=== PATIENT | female | born 1945 | race Caucasian/White ===

== ENCOUNTER → 2017-01-26 | Outpatient (CLI) | payer MEDICARE, BC ==
--- NOTE | 2017-01-26 11:16 | RAD ---
EXAM: Lumbar spine CT without contrast. HISTORY: Sciatica. TECHNIQUE: Computed tomographic images of the lumbar spine were obtained without contrast. Multiplanar reformatting was performed. COMPARISON: 04/26/2010. FINDINGS: There is lumbar levoscoliosis. There is minimal grade 1 anterolisthesis of L3 on L4 and retrolisthesis of L2 on L3. There is degenerative endplate remodeling with disc space narrowing primarily along the right aspect of L4-L5. This corresponds with the level of maximum sclerotic concavity. No suspicious osseous lesion is seen. There is no fracture. There is slight nodular thickening of the left adrenal gland without a discrete lesion, stable in appearance. There is focal ectasia of the distal abdominal aorta to a caliber of 2.6 cm. There is a 1.6 cm density along the left aspect of the aorta inferior to the left renal artery. This appears contiguous with the aorta and is most suggestive of a penetrating atherosclerotic ulcer, increased compared to a contrast-enhanced CT dated 07/02/2015. At L1-L2, there is a disc bulge and endplate remodeling. There is mild facet arthropathy. There is no stenosis. At L2-L3, there is a disc bulge and endplate remodeling. There is moderate facet arthropathy. There is mild right foraminal stenosis. At L3-L4, there is a disc bulge and endplate remodeling. There is severe facet arthropathy. There is hypertrophy of the ligamentum flavum. There is epidural lipomatosis. There is mild left foraminal stenosis. There is mild central canal stenosis. At L4-L5, there are left paracentral and left foraminal to extraforaminal disc protrusions. These are superimposed on a disc bulge and endplate remodeling. There is mild right and moderate left facet arthropathy. There is hypertrophy of the ligamentum flavum. There is epidural lipomatosis. There is mild right and moderate left foraminal stenosis. There is [id number] central canal stenosis. At L5-S1, there is a disc bulge and endplate remodeling. There is mild right and severe left facet arthropathy. There is mild left foraminal stenosis. IMPRESSION: 1. Multilevel degenerative change within the lumbar spine, described in detail above. This results in mild right foraminal stenosis at L2-L3, mild left foraminal and central canal stenosis at L3-L4, mild right and moderate left foraminal and [id number] central canal stenosis at L4-L5, and mild left foraminal stenosis L5-S1. These findings have increased compared to the prior study. 2. Suspected 1.6 cm suspected penetrating atherosclerotic ulcer along the left aspect of the abdominal aorta inferior to the left renal artery, increased compared to a prior CT dated 07/02/2015. CT angiography may be useful for better characterization. PQRS Compliance Statement: One or more of the following individualized dose reduction techniques were utilized for this examination: 1. Automated exposure control 2. Adjustment of the mA and/or kV according to patient size 3. Use of iterative reconstruction technique
== END | disposition home or self-care (01) ==
LOC: DXRADRC 10:43
PROVIDERS: ATTEND Physician Assistant Medical
DX: M48.06 Spinal stenosis, lumbar region (principal); M12.9 Arthropathy, unspecified; M25.531 Pain in right wrist; M54.30 Sciatica, unspecified side; I70.90 Unspecified atherosclerosis; I77.2 Rupture of artery
CPT/HCPCS: 73110